=== PATIENT | female | born 1980 | race Caucasian/White ===

== ENCOUNTER 2016-07-25 17:25 | Emergency (ER) | payer OTHER ==
[2016-07-25 17:29] VITALS: BP 139/97; PULSE 71; RESP 18; TEMP 98.1; O2SAT 98
--- NOTE | 2016-07-25 17:54 | EDPHY ---
H & P Time Seen by Provider: 07/25/16 17:29 HPI/ROS: CHIEF COMPLAINT: Right index finger laceration HISTORY OF PRESENT ILLNESS: 35-year-old female presents emergency department with a laceration to her distal right index finger. Patient is left hand dominant and was cutting a piece of paper with an [employer] knife. Tetanus is up- to-date. Patient denies numbness or tingling to her finger, she denies other complaints. Smoking Status: Former smoker Physical Exam: GEN: Awake, alert, oriented, no acute distress RESP: nl resp effort MSK: Right index finger with full active range of motion against resistance at MCP, PIP and the DIP joint, 2 point discrimination intact SKIN: 1 cm cortical superficial flap laceration to distal right lateral index finger, no fingernail involvement Constitutional: Initial Vital Signs Temperature (C) 36.7 C 07/25/16 17:26 Heart Rate 71 07/25/16 17:26 Respiratory Rate 18 07/25/16 17:26 Blood Pressure 139/97 H 07/25/16 17:26 O2 Sat (%) 98 07/25/16 17:26 O2 Delivery Mode Room Air Allergies/Adverse Reactions: Penicillins Allergy (Unknown, Verified 07/25/16 17:29) as child Home Medications: Medication Instructions Recorded NK [No Known Home Meds] 07/25/16 MDM/Departure - MDM Procedures: Procedure: Laceration repair. Verbal consent was obtained from the patient. The 1 cm laceration on the right index finger was anesthetized using digital block with 1% lidocaine without epinephrine mixed with 0.5% bupivacaine without epinephrine. The wound was carefully irrigated by the emergency department electronic test technician. Next, the wound was prepped and draped in sterile fashion and explored to its base with a gloved finger. There were no deep structures involved. No tendon injury was identified. No vascular injury was identified. No foreign bodies were identified. The wound was repaired with 5.0 Prolene, 3 simple interrupted sutures. The wound repair was simple. The procedure was performed by myself. Tetanus and antibiotic status were addressed. - Depart Disposition: Home, Routine, Self-Care Clinical Impression: Laceration of right index finger Condition: Good Instructions: Finger Laceration (ED) Additional Instructions: Return to the emergency department in 12-14 days for suture removal, return sooner for any signs of infection, other questions or concerns. Referrals: Gaby Sewell MD [Primary Care Provider] - Follow Up Only If Needed
== END 2016-07-25 18:44 | disposition home or self-care (01) ==
PROC: 0HQFXZZ Repair Right Hand Skin, External Approach (ICD-10-PCS; principal; 2016-07-25)
DX: S61.210A Laceration without foreign body of right index finger without damage to nail, initial encounter (principal); Z87.891 Personal history of nicotine dependence; W26.0XXA Contact with knife, initial encounter